=== PATIENT | female | born 1950 | race Caucasian/White ===

== ENCOUNTER → 2020-06-19 | Outpatient (CLI) | payer MEDICARE, OTHER ==
[2020-06-19 13:21] LABS: BASOPHILS % (AUTO) 0.4 % (0.0-5.0); EOSINOPHILS % (AUTO) 2.2 % (0.0-8.0); HEMATOCRIT 42.2 % (36-48); LYMPHOCYTES % (AUTO) 28.5 % (21.0-51.0); MEAN CORPUSCULAR HEMOGLOBIN 31.5 pg (27.0-33.0); MEAN CORPUSCULAR HGB CONC 32.7 g/dL (32.0-36.0); MEAN CORPUSCULAR VOLUME 96.3 fL (79-99); NEUTROPHILS % (AUTO) 61.5 % (40.0-77.0); PLATELET COUNT (AUTO) 435 K/uL (130-400); RED BLOOD CELL COUNT(AUTO) 4.38 MIL/uL (4.00-5.50); RED CELL DISTRIBUTION WIDTH 13.4 % (11.0-15.5); WHITE BLOOD COUNT (AUTO) 11.3 K/uL (4.8-10.8)
[2020-06-19 13:31] LABS: CREATININE 0.8 mg/dL (0.5-1.5); POTASSIUM 4.2 mmol/L (3.5-5.1)
== END | disposition home or self-care (01) ==
LOC: LAB 12:53
PROVIDERS: ATTEND Urology
DX: R31.29 Other microscopic hematuria (principal)
CPT/HCPCS: 36415; 80048; 85025

== ENCOUNTER → 2020-07-09 | Outpatient (CLI) | payer MEDICARE, OTHER | END | disposition home or self-care (01) | LOC: RAH 08:05 | PROVIDERS: ATTEND Urology | DX: N20.0 Calculus of kidney (principal); K76.89 Other specified diseases of liver; K57.30 Diverticulosis of large intestine without perforation or abscess without bleeding | CPT/HCPCS: 74176; 76770 ==

== ENCOUNTER → 2021-11-17 | Outpatient (CLI) | payer MEDICARE, OTHER | END | disposition home or self-care (01) | LOC: RAH 15:44 | PROVIDERS: ATTEND Family Medicine | DX: R10.31 Right lower quadrant pain (principal) | CPT/HCPCS: 74176 ==

== ENCOUNTER → 2021-11-19 | Outpatient (CLI) | payer MEDICARE, OTHER | END | disposition home or self-care (01) | LOC: RAH 08:57 | PROVIDERS: ATTEND Family Medicine | DX: C78.7 Secondary malignant neoplasm of liver and intrahepatic bile duct (principal) | CPT/HCPCS: 71250 ==

== ENCOUNTER → 2021-11-20 | Outpatient (CLI) | payer MEDICARE, OTHER ==
[~2021-11-20] MED LIST: GADOTERATE MEGLUMINE 10 MMOL/20 ML VIAL IV ONE
== END | disposition home or self-care (01) ==
LOC: RAH 02:21
PROVIDERS: ATTEND Family Medicine
DX: C78.7 Secondary malignant neoplasm of liver and intrahepatic bile duct (principal); R90.82 White matter disease, unspecified
CPT/HCPCS: 70553; A9575